=== PATIENT | female | born 1955 | race Caucasian/White ===

== ENCOUNTER → 2018-07-22 11:39 | Outpatient (CLI) | payer OTHER, SELFPAY | PROVIDERS: Visit Provider Physician Assistant | DX: R30.0 Dysuria (principal) | CPT/HCPCS: 87077; 87086; 87186 ==

== ENCOUNTER → 2019-01-10 14:17 | Outpatient (CLI) | payer OTHER, SELFPAY | PROVIDERS: PCP Hospitalist; Visit Provider Nurse Practitioner | DX: R30.0 Dysuria (principal) | CPT/HCPCS: 87077; 87086; 87186 ==

== ENCOUNTER → 2020-06-01 10:19 | Outpatient (CLI) | payer OTHER, SELFPAY | PROVIDERS: Visit Provider Nurse Practitioner | DX: R30.0 Dysuria (principal) | CPT/HCPCS: 87077; 87086; 87186 ==

== ENCOUNTER 2020-12-28 11:14 | Emergency (ER) | payer OTHER, SELFPAY ==
[2020-12-28 11:20] VITALS: BP 197/103; PULSE 96; RESP 14; TEMP 36.2; O2SAT 100; BMI 21.9
[2020-12-28 11:31] VITALS: BP 201/96; PULSE 82; RESP 18; O2SAT 98
[2020-12-28 12:00] VITALS: BP 175/79; PULSE 81; RESP 16; O2SAT 99
--- NOTE | 2020-12-28 12:24 | ED.GENADULT ---
HPI - General Adult <Blane Martins PA-C - Last Filed: 12/28/20 12:33> General Chief complaint: Hypertension Stated complaint: High bp, sent by [facility] Time Seen by Provider: 12/28/20 12:01 Source: patient Mode of arrival: Ambulatory Limitations: no limitations History of Present Illness HPI narrative: Dottie presents today with chief complaint of elevated blood pressure that has been going on for the last few days. She reports that she used to take lisinopril 5 mg daily but has not been taking that for a few years because she was controlling her blood pressure through diet and exercise. Occasionally she has episodes where her blood pressure elevates for a few days. She feels otherwise fine at this time. She denies any chest pain, shortness of breath, headache, dizziness, vision changes, exertional symptoms, diaphoresis, nausea, vomiting. She denies any significant dietary changes, large sodium meals, excessive alcohol intake, drug use or any other exacerbating factor that could have contributed to her symptoms. Related Data Previous Rx's Medication Instructions Recorded lisinopril 5 mg tablet 5 mg PO DAILY #30 tab 12/28/20 Allergies Allergy/AdvReac Type Severity Reaction Status Date / Time No Known Drug Allergies Allergy Verified 12/28/20 12:13 Review of Systems <Blane Martins PA-C - Last Filed: 12/28/20 12:33> Review of Systems Narrative: As per HPI Patient History <Blane Martins PA-C - Last Filed: 12/28/20 12:33> Medical History Chicken pox Frequent UTI (~2013) HTN (hypertension) (~2013) HTN, goal below 140/80 Skin problem (~2018) Vertigo (~2012) Vertigo (~2013) Family History Mother Cancer Father Congestive heart failure Hyperlipidemia Social History Smoking Status: Never smoker alcohol intake: current substance use type: does not use Smoking Status: Never smoker alcohol intake frequency: 0-2 drinks per day Substance Use Type: does not use Exam <Blane Martins PA-C - Last Filed: 12/28/20 12:33> Narrative Exam Narrative: Exam Narrative: Const General: cooperative, healthy appearing, comfortable, no acute distress, well developed and well groomed Nutritional Appearance: average body habitus Orientation: alert and oriented x3 HENMT Head: normal to inspection and atraumatic Ears: hearing grossly normal bilaterally Nose: external nose normal and nares normal Face and sinus: normal facial exam Eyes: PERRLA, EOMI, grossly normal in appearance Neck Neck: normal visual inspection and supple Resp Effort & Inspection: normal respiratory effort, able to speak in complete sentences, no audible wheezes, not labored, no nasal flaring and no respiratory distress, clear to auscultation bilaterally Cardiac Regular rate, regular rhythm, no discernible murmurs, rubs or gallops Neuro General: alert, oriented x3, gait normal, tone normal and moves all extremities, cranial nerves 2-12 grossly intact, normal coordination, normal [id number], normal rapid alternating movements of upper extremities, normal heel to bradley bilaterally. Cognition: normal cognition Speech: speech normal Gait: normal gait Psych Appearance: grossly normal and well kempt Mental Status: mental status grossly normal Speech and Movement: speech and movement normal Mood: congruent mood Affect: normal affect Initial Vital Signs Initial Vital Signs: Vital Signs Temperature 97.1 F L 12/28/20 11:20 Pulse Rate 96 H 12/28/20 11:20 Respiratory Rate 14 12/28/20 11:20 Blood Pressure 197/103 H 12/28/20 11:20 Pulse Oximetry 100 12/28/20 11:20 <Scarlet Szymanski DO - Last Filed: 01/02/21 00:29> Initial Vital Signs Initial Vital Signs: Vital Signs Temperature 97.1 F L 12/28/20 11:20 Pulse Rate 96 H 12/28/20 11:20 Respiratory Rate 14 12/28/20 11:20 Blood Pressure 197/103 H 12/28/20 11:20 Pulse Oximetry 100 12/28/20 11:20 Course <Blane Martins PA-C - Last Filed: 12/28/20 12:33> Vital Signs Vital signs: Vital Signs - 8 hr 12/28/20 11:20 12/28/20 11:31 Temperature 97.1 F L Pulse Rate 96 H 82 Respiratory Rate 14 18 Blood Pressure 197/103 H 201/96 H Pulse Oximetry 100 98 <DO Hardeep Rivera Last Filed: 01/02/21 00:29> Vital Signs Vital signs: Vital Signs - 8 hr 12/28/20 11:20 12/28/20 11:31 Temperature 97.1 F L Pulse Rate 96 H 82 Respiratory Rate 14 18 Blood Pressure 197/103 H 201/96 H Pulse Oximetry 100 98 Medical Decision Making <Blane Martins PA-C - Last Filed: 12/28/20 12:33> MDM Narrative Medical decision making narrative: Patient is well-appearing at this time. She does not have any signs or symptoms that would suggest end-organ damage. I will represcribe her lisinopril 5 mg daily and she agreed to call her PCP 1st thing on Wednesday to get a follow-up appointment. Recommend that she take her blood pressure daily and discontinue lisinopril if her blood pressure falls below 130 systolic or if she becomes dizzy, lightheaded. ER return precautions were discussed with the patient. Patient verbalizes understanding and agrees to plan and has no further concerns at this time. Thank you A [id number] system was used with the dictation of this note. Please disregard any spelling or grammatical errors. Discharge Plan Departure Patient Disposition: Home Clinical Impression: Hypertension Qualifiers: Hypertension type: unspecified Qualified Code(s): I10 - Essential (primary) hypertension Instructions: DI for High Blood Pressure Activity Restrictions/Additional Instructions: It was very nice to meet you this afternoon. Please continue to monitor your blood pressures daily and document them. I will prescribe lisinopril 5 mg to be taken daily. If your systolic blood pressure falls below 130 please do not take the lisinopril. Please call your doctor 1st thing on Wednesday to schedule a follow-up appointment. You experience headache, vision changes, chest pain, difficulty breathing or have any other acute concerns or complaints do not hesitate to return immediately for re-evaluation. Thank you Blane Martins PA-C Prescriptions: New lisinopril 5 mg tablet 5 mg PO DAILY Qty: 30 RF: 0 Referrals: Demetrice Rooney ARNP [Primary Care Provider] - <Scarlet Szymanski DO - Last Filed: 01/02/21 00:29> Cosign ED Attending Memeature Attestation: I was immediately available in the department for consultation. Documentation has been reviewed.
== END 2020-12-28 12:41 | disposition home or self-care (01) ==
PROVIDERS: Emergency Provider Physician Assistant; PCP Nurse Practitioner
DX: I10 Essential (primary) hypertension (principal)
CPT/HCPCS: 99284

== ENCOUNTER → 2021-01-14 08:26 | Outpatient (CLI) | payer OTHER, SELFPAY ==
[2021-01-14 09:34] LABS: Alanine Aminotransferase 10 IU/L (<35); Albumin 4.3 g/dL (3.5-5.0); Albumin Globulin Ratio 1.8 (1.0-2.8); Alkaline Phosphatase 54 U/L (38-126); Aspartate Aminotransferase 19 IU/L (14-36); BUN Creatinine Ratio 28.8 (6-22); Bilirubin Total 0.8 mg/dL (0.2-1.3); Blood Urea Nitrogen 23 mg/dL (7-17); Calcium 9.9 mg/dL (8.4-10.2); Carbon Dioxide 29 mmol/L (22-32); Chloride 103 mmol/L (98-107); Estimated Glomerular Filt Rate > 60.0 mL/min (>60); Globulin 2.4 g/dL (1.7-4.1); Glucose 94 mg/dL (80-110); HEMOLYSIS < 15 (0-50); Potassium 4.8 mmol/L (3.4-5.1); Sodium 138 mmol/L (137-145); Total Protein 6.7 g/dL (6.3-8.2)
[2021-01-14 09:48] LABS: Free T3, Triiodothyronine Free 3.49 pg/mL (2.77-5.27)
[2021-01-14 10:01] LABS: Thyroid Stimulating Hormone 2.09 uIU/mL (0.47-4.68)
[2021-01-14 17:58] LABS: Creatinine Urine Random 70.6 mg/dL
[2021-01-14 18:06] LABS: Microalbumin Urine Random < 0.6 mg/dL (0-1.6)
== END ==
PROVIDERS: PCP Nurse Practitioner; Referring Provider Nurse Practitioner; Visit Provider Nurse Practitioner
DX: I10 Essential (primary) hypertension (principal); Z79.899 Other long term (current) drug therapy
CPT/HCPCS: 36415; 80053; 82043; 82570; 84439; 84443; 84481

== ENCOUNTER → 2021-02-20 08:35 | Outpatient (CLI) | payer OTHER, SELFPAY | PROVIDERS: PCP Nurse Practitioner; Referring Provider Physician Assistant; Visit Provider Physician Assistant | DX: N39.0 Urinary tract infection, site not specified (principal) | CPT/HCPCS: 87077; 87086; 87186 ==

== ENCOUNTER → 2021-08-26 13:02 | Outpatient (ROUT) | payer OTHER, SELFPAY | PROVIDERS: PCP Nurse Practitioner; Visit Provider Physician Assistant | DX: R30.0 Dysuria (principal) | CPT/HCPCS: 87077; 87086; 87186 ==

== ENCOUNTER → 2021-12-24 15:26 | Outpatient (CLI) | payer OTHER, SELFPAY | PROVIDERS: PCP Nurse Practitioner; Visit Provider Nurse Practitioner Family | DX: R30.0 Dysuria (principal) | CPT/HCPCS: 87086 ==

== ENCOUNTER → 2022-01-12 09:36 | Outpatient (CLI) | payer OTHER, SELFPAY | PROVIDERS: PCP Nurse Practitioner; Visit Provider Nurse Practitioner Family | DX: R30.0 Dysuria (principal) | CPT/HCPCS: 87086 ==

== ENCOUNTER → 2022-10-31 11:57 | Outpatient (CLI) | payer MEDICARE, SELFPAY | PROVIDERS: PCP Nurse Practitioner; Visit Provider Physician Assistant | DX: R30.0 Dysuria (principal) | CPT/HCPCS: 87077; 87086; 87186 ==

== ENCOUNTER 2023-05-21 19:19 | Emergency (ER) | payer MEDICARE, SELFPAY ==
[2023-05-21] VITALS (9 sets, daily range): BP systolic 131–189; BP diastolic 71–88; PULSE 71–100; RESP 18; TEMP 37.1; O2SAT 97–99
--- NOTE | 2023-05-21 20:30 | PC.NURSE ---
hx of HTN was told by clinic to come to ED recent decrease in BP medication. pt only c/o slight h/a
--- NOTE | 2023-05-21 22:26 | ED.GENADULT ---
HPI - General Adult General Chief complaint: Hypertension Stated complaint: HBP Time Seen by Provider: 05/21/23 22:26 Source: patient Mode of arrival: Ambulatory History of Present Illness HPI narrative: 68-year-old female with history of hypertension presents with concern for elevated blood pressure. Patient states she had a mild headache and had been checking her blood pressure as recommended by her physician. She recently had her irbesartan increased about a week ago. She has been averaging about 140s systolic. She had a 185/112 or similar range. She would reached out to her primary care and told to take some Tylenol and magnesium and if that was not helpful and was still elevated rechecked to come be evaluated. Patient states headaches resolved, no vision changes, no chest pain, no shortness of breath no nausea no vomiting no other GI or urinary symptoms. No swelling in extremities. She states no other daily medications. Denies any major surgeries. Allergic to lisinopril. No tobacco, occasional alcohol in the weekends, no recreational drugs. Demetrice sebastian as her primary care. Related Data Previous Rx's Medication Instructions Recorded clobetasol 0.05 % topical cream 1 applic topical QAM AND QPM PRN 04/13/23 itching #30 grams irbesartan 150 mg tablet 225 mg (1.5 x 150 mg) PO DAILY 04/13/23 #135 tabs Allergies Allergy/AdvReac Type Severity Reaction Status Date / Time lisinopril AdvReac Mild lip Verified 04/13/23 12:37 swelling, night sweats Review of Systems Review of Systems ROS Unobtainable: All systems reviewed & are unremarkable except as noted in HPI and below Patient History Medical History Hyperlipidemia Skin problem (~2018) Chicken pox Frequent UTI (~2013) Vertigo (~2013) HTN (hypertension) (~2013) HTN, goal below 140/80 Vertigo (~2012) Family History Mother Cancer Father Congestive heart failure Hyperlipidemia Social History Smoking Status: Never smoker alcohol intake: current substance use type: does not use Smoking Status: Never smoker alcohol intake frequency: 0-2 drinks per day Substance Use Type: does not use Exam Narrative Exam Narrative: GENERAL: Alert and oriented x three, female in no acute distress. HEENT: Head normocephalic, atraumatic, EOMI, pupils reactive, face symmetric, moist mucous membranes NECK: Supple, full range of motion CARDIOVASCULAR: Regular rate and rhythm without murmurs, rubs or gallops. RESPIRATORY: Breath sounds equal bilaterally, no wheezes rales or rhonchi. ABDOMEN: Soft, nontender. Normoactive bowel sounds all 4 quadrants. No guarding or rebound, rigidity, no mass : No CVA tenderness EXTREMITIES: Normal range of motion, no clubbing or edema. Neurovascularly intact NEUROLOGICAL: Cranial nerves II through XII grossly intact. Moving all extremities SKIN: Warm, dry, no petechiae, no rashes or lesions. Initial Vital Signs Initial Vital Signs: Vital Signs Temperature 98.7 F 05/21/23 19:39 Pulse Rate 100 H 05/21/23 19:39 Respiratory Rate 18 05/21/23 19:39 Blood Pressure 189/88 H 05/21/23 19:39 Pulse Oximetry 98 05/21/23 19:39 Oxygen Delivery Method Room Air 05/21/23 19:39 Course Vital Signs Vital signs: Vital Signs - 8 hr 05/21/23 21:00 05/21/23 21:00 05/21/23 21:30 Pulse Rate 75 71 Respiratory Rate Blood Pressure 140/77 Pulse Oximetry 99 99 05/21/23 21:30 05/21/23 22:00 05/21/23 22:00 Pulse Rate 71 Respiratory Rate Blood Pressure 143/75 H 131/72 Pulse Oximetry 97 05/21/23 22:02 05/21/23 22:02 05/21/23 22:30 Pulse Rate 74 75 Respiratory Rate 18 Blood Pressure 148/79 H Pulse Oximetry 98 99 05/21/23 22:30 Pulse Rate Respiratory Rate Blood Pressure 148/71 H Pulse Oximetry Medical Decision Making MDM Narrative Medical decision making narrative: This is a 68-year-old female who presents for concern for elevated blood pressure is elevated initially, has come down without any intervention. Had a mild headache earlier which has since resolved she did take Tylenol and magnesium at home earlier they have been adjusting her blood pressure medication but she has been averaging about 140 systolic. Discussed with patient we will hold off on any further workup. She defers any additional interventions. Plan to continue to monitor blood pressure and adjust as needed. Reviewed return precautions. Discharge Plan Departure Patient Disposition: Home Clinical Impression: HTN (hypertension) Activity Restrictions/Additional Instructions: Please follow-up with your physician for recheck. Continue your home medications as prescribed. If your blood pressure is elevated but you are asymptomatic, contact your physician for further recommendations. If you develop severe headaches, sudden vision changes, chest pain or shortness of breath, persistent vomiting, new numbness tingling or weakness or other new or concerning changes please return for evaluation. Prescriptions: No Action clobetasol 0.05 % cream 1 applic topical QAM AND QPM PRN (Reason: itching) Qty: 30 3RF irbesartan 150 mg tablet 225 mg PO DAILY Qty: 135 3RF Rx Instructions: Take 1/2 tab each morning and 1 tab at bedtime for HTN Referrals: Demetrice Sebastian ARNP [Primary Care Provider] - Stand Alone Forms: Patient Portal/API
== END 2023-05-21 23:01 | disposition home or self-care (01) ==
PROVIDERS: Emergency Provider Emergency Medicine; PCP Nurse Practitioner
DX: I10 Essential (primary) hypertension (principal)
CPT/HCPCS: 99281

== ENCOUNTER → 2023-05-31 07:54 | Outpatient (CLI) | payer OTHER, SELFPAY ==
[2023-05-31 08:51] LABS: Alanine Aminotransferase 15 IU/L (<35); Albumin 4.3 g/dL (3.5-5.0); Albumin Globulin Ratio 1.5 (1.0-2.8); Alkaline Phosphatase 60 U/L (38-126); Aspartate Aminotransferase 21 IU/L (14-36); BUN Creatinine Ratio 17.9 (6-22); Bilirubin Total 1.1 mg/dL (0.2-1.3); Blood Urea Nitrogen 14 mg/dL (7-17); Calcium 9.9 mg/dL (8.4-10.2); Carbon Dioxide 30 mmol/L (22-32); Chloride 105 mmol/L (98-107); Cholesterol 251 mg/dL (140-199); Estimated Glomerular Filt Rate > 60 mL/min (>60); Globulin 2.8 g/dL (1.7-4.1); Glucose 105 mg/dL (80-110); HEMOLYSIS < 15 (0-50); Potassium 4.6 mmol/L (3.4-5.1); Sodium 138 mmol/L (137-145); Total Protein 7.1 g/dL (6.3-8.2); Triglycerides 94 mg/dL (35-150)
[2023-05-31 09:15] LABS: HDL Cholesterol 142 mg/dL (40-60); LDL Cholesterol Calculated 90 mg/dL (<100)
[2023-05-31 11:39] LABS: Creatinine Urine Random 125.3 mg/dL
[2023-05-31 11:43] LABS: Microalbumi Creatinin Ratio Ur 5.5 ug/mg CR (<30); Microalbumin Urine Random 0.7 mg/dL (0-1.6)
== END ==
PROVIDERS: PCP Nurse Practitioner; Referring Provider Nurse Practitioner; Visit Provider Nurse Practitioner
DX: E78.5 Hyperlipidemia, unspecified (principal); I10 Essential (primary) hypertension; Z79.899 Other long term (current) drug therapy
CPT/HCPCS: 36415; 80053; 80061; 82043; 82570

== ENCOUNTER → 2023-06-22 07:53 | Outpatient (CLI) | payer MEDICARE, SELFPAY ==
--- NOTE | 2023-06-22 07:54 | DI.ECHO.S_ITS ---
[facility] +---------+ : : [address] : : : : [id number] : : : : Phone: [phone]+ Echocardiogram Report + + :Name: NAPOLEON PORTER Study Date: 06/22/2023 Height: 62 in : :[facility] ReadingLocation: Weight: 118 lb : : Gender: Female BSA: 1.5 m2 : :: 1955 Age: 68 yrs BP: 168/96 mmHg: :Reason For Study: ESSENTIAL HYPERTENSION : :Ordering Physician: ABY, : :SYEDA Performed By: Christiano Berrios : :Referring: SYEDA BADILLO : + + Interpretation Summary 1) Normal left ventricular thickness, size, wall motion, and systolic function (EF 60-65%). 2) Normal right ventricular size and function. 3) No significant valvular abnormalities. 4) Compared to the Echo done 04/14/2016, no significant change. Procedure: A two-dimensional transthoracic echocardiogram with color flow and Doppler was performed. The study quality was technically adequate. Comparison is made with the echocardiogram of 04/14/2016. The patient was in normal sinus rhythm during the exam. The heart rate ranged between 76-87 bpm during the study. Left Ventricle: The left ventricle is normal in size and wall thickness. The ejection fraction is estimated to be 60-65%. Left ventricular systolic function appears normal without focal wall motion abnormalities. Diastolic parameters suggest probable normal left ventricular diastolic function and normal filling pressures. Right Ventricle: The right ventricle is normal in size and function. Atria: The left atrial size is normal. Right atrial size is normal. The interatrial septum grossly appears intact with no obvious evidence for an atrial septal defect. Mitral Valve: The mitral valve is normal in structure and function. There is no mitral valve stenosis. There is mild mitral regurgitation. Aortic Valve: The aortic valve is trileaflet. There is no aortic valve stenosis. No aortic regurgitation is present. Tricuspid Valve: The tricuspid valve is normal in structure and function. There is no tricuspid stenosis. There is a trace or physiologic amount of tricuspid regurgitation. The right ventricular systolic pressure is estimated to be at least 28 mmHg based on an estimated right atrial pressure of 3 mm Hg. Pulmonic Valve: The pulmonic valve is not well visualized. There is no pulmonic valvular stenosis. There is no pulmonic valvular regurgitation. Great Vessels: The aortic root is normal size. The dimensions of the ascending aorta are normal. The IVC is of normal diameter and collapses greater than 50% with a sniff. This suggests a low right atrial pressure of 3 mm Hg. Pericardium/ Pleura There is no pericardial effusion. There is no pleural effusion. MMode/2D Measurements & Calculations LVIDd: 4.1 cm LVOT diam: 1.9 cm LVIDs: 3.1 cm Ao root diam: 2.6 cm FS: 25.5 % asc Aorta Diam: 2.7 cm IVSd: 0.86 cm Ao Arch Diam (Prox Trans): 2.7 cm LVPWd: 0.71 cm LV estrada. diameter/BSA (cm/m^2): 2.7 LV sys. diameter/BSA (cm/m^2): 2.0 LA A2 area: 11.8 cm2 RA long axis: 3.7 cm LA A4 area: 14.0 cm2 RA area: 11.7 cm2 LA length (vol): 4.0 cm RA vol: 31.1 ml LA vol: 35.5 ml RA : 20.4 ml/m2 LA vol index: 23.2 ml/m2 IVC diam: 1.8 cm RVD1 (basal): 2.8 cm RVD2 (mid): 2.5 cm TAPSE: 2.2 cm Doppler Measurements & Calculations Ao V2 max: 153.8 cm/sec LVOT Max Trung: 123.6 cm/sec Ao V2 mean: 102.5 cm/sec LV V1 max P.1 mmHg Ao max P.5 mmHg LV V1 VTI: 29.9 cm Ao mean P.8 mmHg OBED(I,D): 2.5 cm2 Ao V2 VTI: 34.0 cm OBED(V,D): 2.2 cm2 sev ratio: 0.88 OBED indexed to BSA (cm^2/m^2): 1.6 MV E max trung: 82.2 cm/sec TR max trung: 253.0 cm/sec MV A max trung: 104.6 cm/sec TR max P.6 mmHg MV E/A: 0.79 PA V2 max: 108.5 cm/sec Med Peak E' Trung: 9.2 cm/sec PA V2 mean: 80.6 cm/sec E/E' med: 9.0 PA mean P.8 mmHg Lat Peak E' Trung: 10.2 cm/sec PA pr(Accel): 15.6 mmHg E/E' lat: 8.1 E/e' average: 8.5 MV dec time: 0.20 sec SV(LVOT): 83.4 ml Reading Physician:12:32 PM
== END ==
PROVIDERS: PCP Family Medicine; Referring Provider Nurse Practitioner; Visit Provider Nurse Practitioner
DX: I34.0 Nonrheumatic mitral (valve) insufficiency (principal); I10 Essential (primary) hypertension
CPT/HCPCS: 93306

== ENCOUNTER → 2023-09-15 16:37 | Outpatient (CLI) | payer MEDICARE, SELFPAY | PROVIDERS: PCP Family Medicine; Visit Provider Student in an Organized Health Care Education/Training Program | DX: R30.0 Dysuria (principal) | CPT/HCPCS: 87077; 87086; 87186 ==

== ENCOUNTER → 2024-01-18 09:25 | Outpatient (CLI) | payer MEDICARE, SELFPAY | PROVIDERS: PCP Family Medicine; Visit Provider Nurse Practitioner Family | DX: R30.0 Dysuria (principal); N30.01 Acute cystitis with hematuria | CPT/HCPCS: 87086 ==

== ENCOUNTER → 2024-02-22 12:30 | Outpatient (CLI) | payer MEDICARE, SELFPAY | PROVIDERS: PCP Family Medicine; Visit Provider Student in an Organized Health Care Education/Training Program | DX: R30.0 Dysuria (principal) | CPT/HCPCS: 87086 ==

== ENCOUNTER → 2024-03-23 09:45 | Outpatient (CLI) | payer MEDICARE, SELFPAY | PROVIDERS: PCP Family Medicine; Visit Provider Nurse Practitioner Family | DX: R30.0 Dysuria (principal) | CPT/HCPCS: 87086 ==

== ENCOUNTER → 2024-04-11 08:10 | Outpatient (CLI) | payer MEDICARE, SELFPAY ==
--- NOTE | 2024-04-11 08:11 | DI.US.S_ITS ---
PROCEDURE: US RENAL COMPLETE INDICATIONS: frequent UTI; urge incontinence TECHNIQUE: Real-time scanning was performed of the kidneys and bladder, with image documentation. COMPARISON: None. FINDINGS: Kidneys: Kidneys are normal in size. Right kidney measures 11.4 cm long; left kidney measures 10.9 cm long. Right renal cortical thickness is 1.0 cm; left renal cortical thickness is 1.1 cm. Renal cortical echotexture is normal. No hydronephrosis or nephrolithiasis. No suspicious solid mass lesions. Bladder: Pre-void bladder volume is 93 mL. Post-void residual is 7.5 mL. Pre-void images demonstrate no intraluminal masses or stones. On pre-void images, bilateral ureteral jets are noted with color Doppler interrogation. (Of note, ureteral jets may not be detectable in up to 25% of cases due to insufficient differences in specific gravity between ureteral and bladder urine). Miscellaneous: No free pelvic fluid. Incidental note made of cholelithiasis. IMPRESSION: Normal kidneys. Normal urinary bladder without debris. Small postvoid residual following emptying. Dictated by: Amy Arshad M.D. on 04/11/2024 at 15:18 Approved by: Amy Arshad M.D. on 04/11/2024 at 15:20
== END ==
PROVIDERS: PCP Family Medicine; Referring Provider Family Medicine; Visit Provider Family Medicine
DX: N39.0 Urinary tract infection, site not specified (principal); N39.41 Urge incontinence; R30.0 Dysuria; R33.9 Retention of urine, unspecified
CPT/HCPCS: 76770

== ENCOUNTER 2024-05-23 13:45 | Outpatient (RCR) | payer MEDICARE, SELFPAY ==
--- NOTE | 2024-05-11 16:00 | PT.OPPOC ---
Physical, Occupational & Speech Therapy At [facility] Current Diagnoses Segmental and somatic dysfunction of pelvic region (05/11/24) Urge incontinence (05/11/24) Other female genital prolapse (05/11/24) Frequency of micturition (05/11/24) Visit Care Team Role Provider Type Lindsey Tomas DO Attending Provider Physician Family Provider Primary Care Provider Referring Provider Specialty: Family Practice Address: [address] [place] [address], [address], [facility] Email: [email or web address] Plan Of Care PT-OP-B Current Condition Start: 05/10/24 13:29 Freq: Status: Active Protocol: Document 05/11/24 10:44 [facility] (Rec: 05/11/24 11:09 [facility] [id number]) Current Condition History of Current Condition Current Complaints urinary frequency History of Current Condition history of UTI's, she has done a ultrasound and there is a small post void of 7.5 ml. 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 She gets up at 6 and generally doesn't leave for work until 10 and she gets home between 3:30- and 4:00 pt wakes one time per night at 3:00 am She only gets urgency when she is closer to a UTI. PT-OP-T Assessment and Plan Start: 05/10/24 13:29 Freq: Status: Active Protocol: Document 05/11/24 10:45 [facility] (Rec: 05/16/24 08:26 [facility] [id number]) Physical Therapy Assessment Rehab Potential Rehabilitation Potential Excellent Evaluation Complexity Number of Personal Factors/Comorbidities 1-2 Number of Body Systems Impaired 3 Impairments Impairments Activity Tolerance,Functional Activities,Soft Tissue Mobility,Strength Other Impairments urge incontinence Goals 3 Impairment Pt lacks a home program for pelvic floor relaxation Care Home Goal (LTG) Dottie is independent with a HEP for pelvic floor relaxation techniques 2 Impairment fascial guarding of the suprapubic fascia and abdominal wall which can contribute to UTI's and bladder irritation Care Home Goal (LTG) Dottie presents with improved mobility of the abdominal fascia and is Ind with both self massage to the suprapubic fascia as well as stretches to help reduce tightness in the abdominal fascia LTG Duration 8 weeks 1 Impairment history of frequent UTI's and habit of delaying voiding during the day due to the nature of her work Short Term Goal (STG) Dottie is educated on the importance of voids every 2-3 hours and appropriate fluid intake to decrease irritation to the bladder STG Duration 4 weeks Assessment Summary Assessment Dottie is a 69 year old female who presents to PT with history of frequent UTI's and urinary urge incontinence. 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 If she waits too long she will have urgency and leakage. 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 With Eval Dottie presents with guarding and tightness of the suprapubic fascia and abdominal wall. She has difficulty with relaxing her floor with external palpation. She is a good candidate for bladder retraining, working on relaxed awareness of the pelvic floor and improving her ability to fully empty her bladder. She would benefit from a review of bladder irritants and education on how often she should be voiding and not holding. Due to history of frequent UTI's her ability to fully empty her bladder and to avoid holding for too long as well as strategies for increasing liquids during the day. Dottie is a good candidate for PT Physical Therapy Plan Frequency and Duration Frequency of Treatment 1x/Week Duration of treatment (weeks) 8 Plan of Care Start Date 05/11/24 Plan of Care End Date 07/06/24 Therapeutic Interventions Therapeutic Interventions Home Exercise Program,Manual Therapy,Patient/Caregiver Education,Self-Care/Home Management,Soft Tissue Mobilization,Therapeutic Exercises Modalities Biofeedback Next Visit Focus/Plan Next Note Type Treatment Note Next Visit Plan bladder diary, urge deference technique, begin MFR for the suprapubic fascia and teach stretches to relax the pelvic floor. Plan of Care Dates Plan of Care Start Date 05/11/24 Plan of Care End Date 07/06/24 Electronically Signed by: Yulissa Peña, PT 05/16/24 0827 If you are in agreement with this Plan of Care, please return a signed and dated copy. I have reviewed this Plan of Care and certify that the skilled therapy services above are required to meet the patient?s needs. Physician Signature Date Printed Name and Credentials Clinical Instructor Signature Printed Name and Credentials
--- NOTE | 2024-05-11 16:00 | PT.OIE ---
Current Diagnoses Segmental and somatic dysfunction of pelvic region (05/11/24) Urge incontinence (05/11/24) Other female genital prolapse (05/11/24) Frequency of micturition (05/11/24) Past Medical History (Last Reviewed 02/22/24 @ 13:02 by Elena Rosas PA-C) Chicken pox Frequent UTI (~2013) HTN (hypertension) (~2013) HTN, goal below 140/80 Hyperlipidemia Skin problem (~2018) Vertigo (~2012) Vertigo (~2013) Visit Care Team Role Provider Type Lindsey Tomas DO Attending Provider Physician Family Provider Primary Care Provider Referring Provider Specialty: Family Practice Address: [address] [place] [address], [address], [facility] Email: [email or web address] Physical Therapy Initial Evaluation PT-OP-A Visit Information Start: 05/10/24 13:29 Freq: Status: Active Protocol: Document 05/11/24 10:44 [facility] (Rec: 05/11/24 11:09 [facility] [id number]) Out-Patient Physical Therapy Visit Information Visit Information Visit Type Initial Evaluation Visit Note eval only [employer] Visit Start Time 10:45 Visit Stop Time 11:35 Visit Number 1 Evaluation Information Evaluation Date 05/11/24 PT-OP-B Current Condition Start: 05/10/24 13:29 Freq: Status: Active Protocol: Document 05/11/24 10:44 [facility] (Rec: 05/11/24 11:09 [facility] [id number]) Current Condition History of Current Condition Current Complaints urinary frequency History of Current Condition history of UTI's, she has done a ultrasound and there is a small post void of 7.5 ml. 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 She gets up at 6 and generallly doesn't leave for work until 10 and she gets home between 3:30- and 4:00 pt wakes one time per night at 3:00 am She only gets urgency when she is closer to a UTI. PT-OP-F Manual Assessment Start: 05/10/24 13:29 Freq: Status: Active Protocol: Document 05/11/24 10:45 [facility] (Rec: 05/16/24 08:26 [facility] [id number]) Manual Assessments Soft Tissue Assessment Soft Tissue Mobility Assessment tightness in the suprapubic fascia surrounding the bladder and urethra, fascial tightness in the upper abdominal wall PT-OP-I Pelvic Floor Start: 05/10/24 13:29 Freq: Status: Active Protocol: Document 05/11/24 10:45 [facility] (Rec: 05/16/24 08:26 [facility] [id number]) Pelvic Floor Assessment Urine Pelvic Floor Surgery No Urinary Symptoms Urge Sensation,Incomplete Emptying Other Urinary Symptoms stong urge to void, urgency with walking to the toilet Comments Pelvic Floor Comments tightness of the pelvic floor with decreased ability to fully relax PT-OP-T Assessment and Plan Start: 05/10/24 13:29 Freq: Status: Active Protocol: Document 05/11/24 10:45 [facility] (Rec: 05/16/24 08:26 [facility] [id number]) Physical Therapy Assessment Rehab Potential Rehabilitation Potential Excellent Evaluation Complexity Number of Personal Factors/Comorbidities 1-2 Number of Body Systems Impaired 3 Impairments Impairments Activity Tolerance,Functional Activities,Soft Tissue Mobility,Strength Other Impairments urge incontinence Goals 3 Impairment Pt lacks a home program for pelvic floor relaxation Fiber Optic Technician Goal (LTG) Dottie is independent with a HEP for pelvic floor relaxation techniques 2 Impairment fascial guarding of the suprapubic fascia and abdominal wall which can contribute to UTI's and bladder irritation Fiber Optic Technician Goal (LTG) Dottie presents with improved mobility of the abominal fascia and is Ind with both self massage to the suprapubic fascia as well as stretches to help reduce tightness in the abdominal fascia LTG Duration 8 weeks 1 Impairment history of frequent UTI's and habit of delaying voiding during the day due to the nature of her work Short Term Goal (STG) Dottie is educated on the importance of voids every 2-3 hours and appropriate fluid intake to decrease irritation to the bladder STG Duration 4 weeks Assessment Summary Assessment Dottie is a 69 year old female who presents to PT with history of frequent UTI's and urinary urge incontinence. 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 If she waits too long she will have urgency and leakge. 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 With Deedee Sinclair presents with guarding and tightness of the suprapubic fascia and abdominal wall. She has difficulty with relaxing her floor with external palpation. She is a good candidate for bladder retraining, working on relaxed awareness of the pelvic floor and improving her ability to fully empty her bladder. She would benefit from a review of bladder irritants and education on how often she should be voiding and not holding. Due to history of frequent UTI's her ability to fully empty her bladder and to avoid holding for too long as well as stratagies for increasing liquids during the day. Dottie is a good candidate for PT Physical Therapy Plan Frequency and Duration Frequency of Treatment 1x/Week Duration of treatment (weeks) 8 Plan of Care Start Date 05/11/24 Plan of Care End Date 07/06/24 Therapeutic Interventions Therapeutic Interventions Home Exercise Program,Manual Therapy,Patient/Caregiver Education,Self-Care/Home Management,Soft Tissue Mobilization,Therapeutic Exercises Modalities Biofeedback Next Visit Focus/Plan Next Note Type Treatment Note Next Visit Plan bladder diary, urge deference technique, begin MFR for the suprapubic fascia and teach stretches to relax the pelvic floor.
--- NOTE | 2024-05-18 14:33 | PT.OTN ---
Current Diagnoses Segmental and somatic dysfunction of pelvic region (05/18/24) Urge incontinence (05/18/24) Other female genital prolapse (05/18/24) Frequency of micturition (05/18/24) Physical Therapy Treatment Note PT-OP-A Visit Information Start: 05/10/24 13:29 Freq: Status: Active Protocol: Document 05/18/24 13:48 [facility] (Rec: 05/18/24 14:33 [facility] [id number]) Out-Patient Physical Therapy Visit Information Visit Information Visit Type Treatment Note Visit Start Time 13:45 Visit Stop Time 14:25 Visit Number 2 Evaluation Information Evaluation Date 05/11/24 PT-OP-B Current Condition Start: 05/10/24 13:29 Freq: Status: Active Protocol: Document 05/18/24 13:48 [facility] (Rec: 05/18/24 14:33 [facility] [id number]) Current Condition History of Current Condition Current Complaints urinary frequency History of Current Condition history of UTI's, she has done a ultrasound and there is a small post void of 7.5 ml. 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 She gets up at 6 and generallly doesn't leave for work until 10 and she gets home between 3:30- and 4:00 pt wakes one time per night at 3:00 am She only gets urgency when she is closer to a UTI. PT-OP-C Subjective Start: 05/10/24 13:29 Freq: Status: Active Protocol: Document 05/18/24 13:48 [facility] (Rec: 05/18/24 14:33 [facility] [id number]) OP-PT Subjective Patient Comments Patient Comments pt notes she has been able to get a little more out after voiding, she has been trying to drink water before coffee and then when she gets home. pt PT-OP-F Manual Assessment Start: 05/10/24 13:29 Freq: Status: Active Protocol: Document 05/11/24 10:45 [facility] (Rec: 05/16/24 08:26 [facility] [id number]) Manual Assessments Soft Tissue Assessment Soft Tissue Mobility Assessment tightness in the suprapubic fascia surrounding the bladder and urethra, fascial tightness in the upper abdominal wall PT-OP-I Pelvic Floor Start: 05/10/24 13:29 Freq: Status: Active Protocol: Document 05/11/24 10:45 [facility] (Rec: 05/16/24 08:26 [facility] [id number]) Pelvic Floor Assessment Urine Pelvic Floor Surgery No Urinary Symptoms Urge Sensation,Incomplete Emptying Other Urinary Symptoms stong urge to void, urgency with walking to the toilet Comments Pelvic Floor Comments tightness of the pelvic floor with decreased ability to fully relax PT-OP-Q Treatments Start: 05/10/24 13:29 Freq: Status: Active Protocol: Document 05/18/24 13:48 [facility] (Rec: 05/18/24 14:33 [facility] [id number]) Therapeutic Exercises Supine Exercises modified squat stretch Reps/Minutes hold 1-2 min diaphragmatic breathing Reps/Minutes hands on belly for cues x 10 reps Comments inhale x 4 counts exhale x 4 counts Manual Therapy Treatment Soft Tissue Mobilization MFR over the suprapubic fascia Comments MFR suprapubic fascia. pt was also educated in self fascial release for home. With with diaphragmatic breathing to decrease tension in the abdominal wall PT-OP-T Assessment and Plan Start: 05/10/24 13:29 Freq: Status: Active Protocol: Document 05/18/24 13:48 [facility] (Rec: 05/18/24 14:33 [facility] [id number]) Physical Therapy Assessment Assessment Summary Assessment Dottie did well with MFR techniques and diaphragmatic breathing. She tends to hold tightness in her abdomen and we discussed trying to relax her abdominal wall for voiding . Physical Therapy Plan Frequency and Duration Frequency of Treatment 1x/Week Duration of treatment (weeks) 8 Plan of Care Start Date 05/11/24 Plan of Care End Date 07/06/24 Next Visit Focus/Plan Next Note Type Treatment Note Next Visit Plan review stretches, urge technique diaphragmatic breathing and continue with fascial work. Add in lin pose with diaphragmatic breathing
--- NOTE | 2024-05-24 13:44 | PT.OTN ---
Current Diagnoses Segmental and somatic dysfunction of pelvic region (05/23/24) Urge incontinence (05/23/24) Other female genital prolapse (05/23/24) Frequency of micturition (05/23/24) Physical Therapy Treatment Note PT-OP-A Visit Information Start: 05/10/24 13:29 Freq: Status: Active Protocol: Document 05/23/24 13:45 [facility] (Rec: 05/24/24 13:42 [facility] [id number]) Out-Patient Physical Therapy Visit Information Visit Information Visit Type Treatment Note Visit Start Time 13:45 Visit Stop Time 14:30 Visit Number 3 Evaluation Information Evaluation Date 05/11/24 PT-OP-B Current Condition Start: 05/10/24 13:29 Freq: Status: Active Protocol: Document 05/18/24 13:48 [facility] (Rec: 05/18/24 14:33 [facility] [id number]) Current Condition History of Current Condition Current Complaints urinary frequency History of Current Condition history of UTI's, she has done a ultrasound and there is a small post void of 7.5 ml. 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 She gets up at 6 and generallly doesn't leave for work until 10 and she gets home between 3:30- and 4:00 pt wakes one time per night at 3:00 am She only gets urgency when she is closer to a UTI. PT-OP-C Subjective Start: 05/10/24 13:29 Freq: Status: Active Protocol: Document 05/23/24 13:47 [facility] (Rec: 05/23/24 14:33 [facility] [id number]) OP-PT Subjective Patient Comments Patient Comments pt notes she has been trying the double voiding and is feeling like it is making a difference no urethral irritation PT-OP-F Manual Assessment Start: 05/10/24 13:29 Freq: Status: Active Protocol: Document 05/11/24 10:45 [facility] (Rec: 05/16/24 08:26 [facility] [id number]) Manual Assessments Soft Tissue Assessment Soft Tissue Mobility Assessment tightness in the suprapubic fascia surrounding the bladder and urethra, fascial tightness in the upper abdominal wall PT-OP-I Pelvic Floor Start: 05/10/24 13:29 Freq: Status: Active Protocol: Document 05/11/24 10:45 [facility] (Rec: 05/16/24 08:26 [facility] [id number]) Pelvic Floor Assessment Urine Pelvic Floor Surgery No Urinary Symptoms Urge Sensation,Incomplete Emptying Other Urinary Symptoms stong urge to void, urgency with walking to the toilet Comments Pelvic Floor Comments tightness of the pelvic floor with decreased ability to fully relax PT-OP-Q Treatments Start: 05/10/24 13:29 Freq: Status: Active Protocol: Document 05/23/24 13:47 [facility] (Rec: 05/23/24 14:33 [facility] [id number]) Therapeutic Exercises Supine Exercises modified squat stretch Reps/Minutes hold 1-2 min diaphragmatic breathing Reps/Minutes hands on belly for cues x 10 reps Comments inhale x 4 counts exhale x 4 counts Other Exercises lin pose Reps/Minutes 1-2 min with diaphragmatic breathing cat cow Reps/Minutes 10 reps Manual Therapy Treatment Soft Tissue Mobilization MFR over the suprapubic fascia Mobilization Type Myofascial Release Body Position Supine Comments MFR suprapubic fascia. pt was also educated in self fascial release for home. With with diaphragmatic breathing to decrease tension in the abdominal wall PT-OP-T Assessment and Plan Start: 05/10/24 13:29 Freq: Status: Active Protocol: Document 05/23/24 13:45 [facility] (Rec: 05/24/24 13:42 [facility] [id number]) Physical Therapy Assessment Assessment Summary Assessment Dottie notes she is doing well with her exercises and I added new ones on today to help with pelvic floor relaxation. She has been working on increasing water intake and taking time to void and she feels that has been helping. She plans on continueing with her home program and will let us know if she needs any further visits Physical Therapy Plan Frequency and Duration Frequency of Treatment 1x/Week Duration of treatment (weeks) 8 Plan of Care Start Date 05/11/24 Plan of Care End Date 07/06/24 Next Visit Focus/Plan Next Note Type Treatment Note Next Visit Plan If Dottie feels she needs further visits review stretches, MFR over the abdominal wall, diaphragmatic breathing techniques
--- NOTE | 2024-07-04 09:34 | PT.OPDS ---
Current Diagnoses Segmental and somatic dysfunction of pelvic region (05/23/24) Urge incontinence (05/23/24) Other female genital prolapse (05/23/24) Frequency of micturition (05/23/24) Visit Care Team Role Provider Type Lindsey Tomas DO Attending Provider Physician Family Provider Primary Care Provider Referring Provider Specialty: Family Practice Address: [address] [place] [address], [address], [facility] Email: [email or web address] Visit Number Visit Number 3 Discharge Summary PT-OP-B Current Condition Start: 05/10/24 13:29 Freq: Status: Active Protocol: Document 05/18/24 13:48 [facility] (Rec: 05/18/24 14:33 [facility] [id number]) Current Condition History of Current Condition Current Complaints urinary frequency History of Current Condition history of UTI's, she has done a ultrasound and there is a small post void of 7.5 ml. 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 She gets up at 6 and generallly doesn't leave for work until 10 and she gets home between 3:30- and 4:00 pt wakes one time per night at 3:00 am She only gets urgency when she is closer to a UTI. PT-OP-C Subjective Start: 05/10/24 13:29 Freq: Status: Active Protocol: Document 05/23/24 13:47 [facility] (Rec: 05/23/24 14:33 [facility] [id number]) OP-PT Subjective Patient Comments Patient Comments pt notes she has been trying the double voiding and is feeling like it is making a difference no urethral irritation PT-OP-F Manual Assessment Start: 05/10/24 13:29 Freq: Status: Active Protocol: Document 05/11/24 10:45 [facility] (Rec: 05/16/24 08:26 [facility] [id number]) Manual Assessments Soft Tissue Assessment Soft Tissue Mobility Assessment tightness in the suprapubic fascia surrounding the bladder and urethra, fascial tightness in the upper abdominal wall PT-OP-I Pelvic Floor Start: 05/10/24 13:29 Freq: Status: Active Protocol: Document 05/11/24 10:45 [facility] (Rec: 05/16/24 08:26 [facility] [id number]) Pelvic Floor Assessment Urine Pelvic Floor Surgery No Urinary Symptoms Urge Sensation,Incomplete Emptying Other Urinary Symptoms stong urge to void, urgency with walking to the toilet Comments Pelvic Floor Comments tightness of the pelvic floor with decreased ability to fully relax PT-OP-T Assessment and Plan Start: 05/10/24 13:29 Freq: Status: Active Protocol: Document 07/04/24 09:31 [facility] (Rec: 07/04/24 09:33 [facility] [id number]) Physical Therapy Assessment Goals 3 Impairment Pt lacks a home program for pelvic floor relaxation Longterm Goal (LTG) Dottie is independent with a HEP for pelvic floor relaxation techniques goal met 2 Impairment fascial guarding of the suprapubic fascia and abdominal wall which can contribute to UTI's and bladder irritation Longterm Goal (LTG) Dottie presents with improved mobility of the abominal fascia and is Ind with both self massage to the suprapubic fascia as well as stretches to help reduce tightness in the abdominal fascia good progress LTG Duration 8 weeks 1 Impairment history of frequent UTI's and habit of delaying voiding during the day due to the nature of her work Short Term Goal (STG) Dottie is educated on the importance of voids every 2-3 hours and appropriate fluid intake to decrease irritation to the bladder goal met STG Duration 4 weeks Assessment Summary Assessment At the time of her last visit Dottie was doing well with her exercises and feeling that she was voiding better. She is independent with her home program at this time and will be discharged from PT Physical Therapy Plan Discharge Physical Therapy Discharge Comments pt notes she is doing better overall and is feeling independent with her HEP
== END 2024-07-05 12:59 | disposition home or self-care (01) ==
LOC: PHYS 13:45
PROVIDERS: Family Provider Family Medicine; PCP Family Medicine; Referring Provider Family Medicine; Visit Provider Family Medicine
DX: R35.0 Frequency of micturition (principal); N81.89 Other female genital prolapse; M99.05 Segmental and somatic dysfunction of pelvic region; N39.41 Urge incontinence
CPT/HCPCS: 97110; 97140; 97163; 97535

== ENCOUNTER → 2024-08-10 07:30 | Outpatient (CLI) | payer MEDICARE, SELFPAY | PROVIDERS: Family Provider Family Medicine; PCP Family Medicine; Visit Provider Family Medicine | DX: N39.0 Urinary tract infection, site not specified (principal) | CPT/HCPCS: 87086 ==

== ENCOUNTER → 2024-08-10 07:52 | Outpatient (CLI) | payer MEDICARE, SELFPAY ==
[2024-08-10 08:31] LABS: Add Manual Diff / Slide Review NO; Basophils Absolute Auto 100 /uL (0-100); Basophils Percent Auto 1.1 % (0-2); Eosinophils Absolute Auto 100 /uL (0-450); Eosinophils Percent Auto 1.5 % (2-4); Hemoglobin 13.5 g/dL (12.0-16.0); Lymphocytes Absolute Auto 800 /uL (1100-4500); Lymphocytes Percent Auto 16.7 % (25-40); Mean Corpuscular HGB Conc 33.7 % (30-36); Mean Corpuscular Hemoglobin 32.9 PG (26-34); Mean Corpuscular Volume 97.6 fL (80-100); Monocytes Absolute Auto 400 /uL (0-900); Monocytes Percent Auto 9.2 % (3-14); Neutrophils Absolute Auto 3300 /uL (1500-7000); Neutrophils Percent Auto 71.5 % (50-75); Platelet Count 320 X10^3/uL (150-400); White Blood Cell Count 4.6 X10^3/uL (4.5-11.0)
[2024-08-10 08:55] LABS: Alanine Aminotransferase 281 IU/L (<35); Albumin 4.8 g/dL (3.5-5.0); Albumin Globulin Ratio 1.8 (1.0-2.8); Alkaline Phosphatase 177 U/L (38-126); Aspartate Aminotransferase 81 IU/L (14-36); BUN Creatinine Ratio 18.6 (6-22); Bilirubin Total 1.6 mg/dL (0.2-1.3); Blood Urea Nitrogen 16 mg/dL (7-17); Calcium 10.3 mg/dL (8.4-10.2); Carbon Dioxide 27 mmol/L (22-32); Chloride 98 mmol/L (98-107); Estimated Glomerular Filt Rate > 60 mL/min (>60); Globulin 2.6 g/dL (1.7-4.1); Glucose 105 mg/dL (70-99); HEMOLYSIS < 15 (0-50); Lipase 66 U/L (23-300); Potassium 4.9 mmol/L (3.4-5.1); Sodium 134 mmol/L (137-145); Total Protein 7.4 g/dL (6.3-8.2)
== END ==
LOC: LAB 07:52
PROVIDERS: Family Provider Family Medicine; PCP Family Medicine; Referring Provider Family Medicine; Visit Provider Family Medicine
DX: N39.0 Urinary tract infection, site not specified (principal); K21.9 Gastro-esophageal reflux disease without esophagitis; K82.9 Disease of gallbladder, unspecified; R63.4 Abnormal weight loss
CPT/HCPCS: 36415; 80053; 83690; 85025; 87086

== ENCOUNTER → 2024-08-18 06:49 | Outpatient (CLI) | payer MEDICARE, SELFPAY ==
--- NOTE | 2024-08-18 06:50 | DI.US.S_ITS ---
PROCEDURE: US ABDOMEN LIMITED INDICATIONS: RIGHT UPPER QUADRANT ABDOMEN PAIN TECHNIQUE: Real-time scanning was performed of the abdominal and retroperitoneal organs, with image documentation. COMPARISON: [facility], US, US RENAL COMPLETE, 04/11/2024, 8:34. FINDINGS: Liver: Liver is normal in size and homogeneous in echotexture. Gallbladder: Gallbladder is completely filled with stones. No wall thickening. No pericholecystic edema. Negative sonographic Pettit's sign. Biliary ducts: Intrahepatic bile ducts are non-dilated. Extrahepatic bile duct caliber measures 4 mm. Normal is 6-7 mm or less in diameter, or 10 mm or less post-cholecystectomy. Pancreas: Visualized portions of the pancreas are sonographically normal. Miscellaneous: No free abdominal fluid. Spleen is within normal limits measuring 8.2 cm. Incidental note of moderate right renal pelviectasis and dilated proximal right ureter. IMPRESSION: 1. Gallbladder is completely filled with stones. No evidence of acute cholecystitis. 2. Incidental note of moderate right renal pelviectasis and dilated proximal right ureter, incompletely evaluated on this exam. Dictated by: Lion Orozco M.D. on 08/19/2024 at 13:12 Approved by: Lion Orozco M.D. on 08/19/2024 at 13:15
== END ==
PROVIDERS: Family Provider Family Medicine; PCP Family Medicine; Referring Provider Family Medicine; Visit Provider Family Medicine
DX: R10.11 Right upper quadrant pain (principal)
CPT/HCPCS: 76705

== ENCOUNTER 2024-09-15 12:54 | Day surgery (SDC) | payer MEDICARE, SELFPAY ==
[2024-09-07 13:03] VITALS: BMI 18.2
[2024-09-15] VITALS (9 sets, daily range): BP systolic 111–142; BP diastolic 55–79; PULSE 73–83; RESP 15–18; TEMP 36.3–36.6; O2SAT 99–100; BMI 17.2
--- NOTE | 2024-09-15 | DI.RAD.S_ITS ---
PROCEDURE: XR CHOLANGIOGRAM OPERATIVE INDICATIONS: HEIDI COMPARISON: [facility], , US ABDOMEN LIMITED, 08/18/2024, 8:21. FINDINGS: Biliary ducts: The surgeon injected contrast into the biliary ducts after cannulation of the cystic duct stump. Visualized intra- and extrahepatic bile ducts are normal in caliber, without strictures. No intraluminal filling defects to suggest retained ductal stones or sludge. No evidence for iatrogenic ductal injury. Duodenum: Contrast flows promptly through the sphincter of Oddi into the duodenum, which appears normal in caliber. IMPRESSION: Normal operative cholangiogram. Dictated by: Faraz Moscoso M.D. on 09/15/2024 at 17:01 Approved by: Faraz Moscoso M.D. on 09/15/2024 at 17:02
--- NOTE | 2024-09-15 | PATH_ITS ---
[facility] Accession Number: [id number] No. of containers..01 Tissue . 01 Material submitted: . gallbladder - GALLBLADDER . 01 Diagnosis: GALLBLADDER, CHOLECYSTECTOMY: Chronic cholecystitis with mild active inflammation and obstructing cholelithiasis. One benign lymph node. MRV 09/21/2024 1142 Local . 01 Electronically signed: . Savi Hughes DO, Pathologist NPI- [id number] . 01 Gross description: . Received in formalin with two identifiers and gallbladder, is an intact gallbladder 8.6 x 3.0 x 2.5 cm with a violaceous external surface. The cystic duct margin is inked blue. Three barry lymph node candidats are identified 0.5 cm in greatest dimension. Multiple yellow-orange fragmented faceted calculi are within the lumen up to 1.5 cm in greatest dimension and grossly obstructing the cystic duct. The bile is dark green and mucoid in texture. The mucosa is green and trabecular with no yellow discoloration, polyps, or lesions identified. The casanova range from 0.2 to 0.4 cm thick and sales representative jewelry sections to include the cystic duct margin, intact lymph node candidate, and full thickness sections are submitted in cassette A1. ([id number]) /NENA 09/17/2024 0348 Local . 01 Pathologist provided ICD-10: K80.10 . 01 CPT . 153706 Specimen Comment: A courtesy copy of this report has been sent to [facility] Pathology Performed at: [address] [facility], [place], [place] [id number] MD Dimitri Molina MD Phone: [phone]
[2024-09-15] MEDS: CELECOXIB 200 MG CAPSULE PO (13:50)
[2024-09-15] MEDS: GABAPENTIN 300 MG CAPSULE PO (13:50)
[2024-09-15] MEDS: ACETAMINOPHEN 325 MG TABLET 975 MG PO (13:50)
[2024-09-15] MEDS: LACTATED RINGERS 1,000 ML 42 ML IV (13:50)
--- NOTE | 2024-09-15 14:13 | PM.PREOP ---
Pre-operative Note Interval Note History & Physical reviewed/Exam performed by Physician: Yes Changes to H&P: No ASA Class (for procedural sedation): I
[2024-09-15] MEDS: CEFAZOLIN 2 GM/100 ML PREMIX 100 ML IV (14:42)
--- NOTE | 2024-09-15 15:05 | SUR.OPER ---
Supine on padded OR bed, head on pillow, arms secured on padded arm boards at <90 degrees abduction right arm tucked for C Arm access, legs uncrossed, safety belt at thigh, tape over blanket over lower legs.
[2024-09-15] MEDS: iopamidoL 30 ML VIAL INJ (15:23)
[2024-09-15] MEDS: BUPIVACAINE 0.25% W/ EPI 30 ML VIAL INJ (15:24)
--- NOTE | 2024-09-15 15:56 | P.OP_ITS ---
Operative Date/Time/Diagnoses Date of procedure: 09/15/24 Time of procedure: 15:56 Pre-op diagnosis: Calculous cholecystitis Post-op diagnosis: same Procedure & Clinicians Procedure: Lap choley with IOCG Same procedure(s) as scheduled: Yes Indications: Symptomatic cholelithiasis, chronic cholecystitis. H/O gallstones for 50 years. Surgeon: Dallas Wright Click Yes if Unassisted: Yes Anesthesia Type: General Operative Notes Findings: No omental adhesions, normal cholangiogram, routine choley Closure Type: primary Specimen(s): other (gallbladder) Applied: none Estimated Blood Loss (mL): 5 Blood products transfused: none Procedure in detail: After informed consent and satisfactory general endotracheal anesthesia the abdomen was prepped and draped in the usual sterile manner. Pneumoperitoneum with carbon dioxide to a pressure of 12 mmHg was established using the Montgomery direct cutdown trocar technique. An 0 Vicryl [id number]-fjvkx suture was placed in the fascia. Three right upper quadrant trocars were inserted under direct vision. The patient was placed in reverse Trendelenburg right side up position. Laparoscopic TAP blocks were performed by injecting 15 cc of 0.25% Marcaine with epinephrine into the transversus abdominis muscle bilaterally under direct vision. The fundus of the gallbladder was grasped and retracted over the liver the infundibulum was grasped and retracted laterally for proper exposure of the cystic duct and artery. There were no greater omental adhesions to the gallbladder. The cystic duct and artery were elongated and easily identified. The structures were skeletonized and critical view of safety was easily achieved. We had two distinct structures entering the gallbladder with segment 5 of the liver posteriorly. The cystic artery was addressed 1st by doubly clipping it with hemolock clips and dividing in between with Metzenbaum scissors. The cystic duct was controlled with a hemolock clip next to the gallbladder a ductotomy was made with laparoscopic Metzenbaum scissors and a cholangiogram was obtained using a yellow ureteral catheter via the Armenta clamp. The cholangiogram was normal. The left and right hepatic ducts common hepatic duct distal common bile duct were normal and nondilated with no filling defects and the contrast flowed unobstructed into the duodenum. With this the cholangiogram catheter was removed and 2 clips were placed proximal to the ducto magy and the cystic duct was divided completely with Metzenbaum scissors. With this the gallbladder was removed from the liver using hook cautery. The patient had a nice mesentery to the gallbladder and this was an easy plane. Once the gallbladder was it was placed into an endo-pouch and removed. Palpable cholelithiasis were appreciated. The liver bed was inspected and there was no bleeding or bile drainage noted. The cystic duct and artery clips were inspected and there was no bleeding or bile drainage noted. No irrigation fluid was required and nothing required suction. At this point the trocars were removed there was no bleeding noted at the trocar sites. The fascia was closed by tying the 0 Vicryl [id number]-lo-buprd suture taking care to avoid visceral contents. The skin incisions were closed using 4-0 Monocryl in a subcuticular manner. Dermabond glue was applied as a final dressing. The estimated blood loss was minimal. The instrument sponge and needle counts were all correct x2. The patient tolerated the procedure well and was extubated in the operating room after reversal of general endotracheal anesthesia and transported to the recovery area in stable condition. Complications: none Post-operative Condition: stable Disposition: PACU Plan for aftercare: F/U in office in two weeks
[2024-09-15] MEDS: ONDANSETRON 4 MG/2 ML INJ IV (16:13)
== END 2024-09-15 17:00 | disposition home or self-care (01) ==
PROVIDERS: Family Provider Family Medicine; PCP Family Medicine; Referring Provider Family Medicine; Visit Provider Surgery
PROC: 0FT44ZZ Resection of Gallbladder, Percutaneous Endoscopic Approach (ICD-10-PCS; CPT 47563; principal; 2024-09-15 14:30)
DX: K80.10 Calculus of gallbladder with chronic cholecystitis without obstruction (principal); Z87.440 Personal history of urinary (tract) infections
CPT/HCPCS: 47563; 74300; J0690; J1100; J2405; J2704; J3010; J3490; Q9967

== ENCOUNTER → 2024-09-20 13:22 | Outpatient (CLI) | payer MEDICARE, SELFPAY ==
--- NOTE | 2024-09-20 13:23 | DI.US.S_ITS ---
PROCEDURE: US ABDOMEN LIMITED INDICATIONS: RT inguinal mass TECHNIQUE: Real-time focused scanning was performed of the inguinal region, with image documentation. COMPARISON: [facility], [place], US ABDOMEN LIMITED, 08/18/2024, 8:21. FINDINGS: Focus of decreased echogenicity with posterior enhancement measuring 3.7 x 2.6 x 3.2 cm in the right inguinal region. No vascular flow. IMPRESSION: Cystic structure within the right inguinal region. CT is recommended for further evaluation Dictated by: Rachael Dodson M.D. on 09/20/2024 at 20:32 Approved by: Rachael Dodson M.D. on 09/20/2024 at 20:33
== END ==
PROVIDERS: Family Provider Family Medicine; PCP Family Medicine; Referring Provider Surgery; Visit Provider Surgery
DX: R19.09 Other intra-abdominal and pelvic swelling, mass and lump (principal)
CPT/HCPCS: 76705

== ENCOUNTER → 2024-09-27 08:20 | Outpatient (CLI) | payer MEDICARE, SELFPAY ==
--- NOTE | 2024-09-27 08:21 | DI.CT.S_ITS ---
PROCEDURE: CT PELVIS W CON INDICATIONS: RT inguinal mass, u/s showed cyst, ?femoral hernia TECHNIQUE: After the administration of intravenous contrast, 5 mm thick sections acquired from the iliac crests to the symphysis. 5 mm coronal and sagittal reformats were acquired. For radiation dose reduction, the following was used: automated exposure control, adjustment of mA and/or kV according to patient size. COMPARISON: [facility], , ABDOMEN LIMITED, 09/20/2024, 13:48. FINDINGS: Image quality: Diagnostic Lower abdomen: No bowel obstruction or lower abdomen. No drainable ascites. Bladder: Unremarkable Reproductive organs: Probable 1.4 cm right uterine fibroid. There are prominent Nilsa adnexal vessels bilaterally, greater on the left. Rectum: Unremarkable Vessels and lymph nodes: No enlarged lymph nodes by size criteria. No aneurysmal vessel identified Pelvic wall: 5.1 x 3.1 cm cystic lesion in the right groin. No definite hernia component identified on CT. Bones: There are degenerative osseous changes. IMPRESSION: Right groin fluid-filled structure measuring 5.1 x 3.1 cm corresponding to ultrasound finding. There is no definite connection into the intrapelvic cavity. No definite hernia component on CT, which is a static modality. No enhancing soft tissue mass. Probable uterine fibroid. Dictated by: Stefani Saavedra on 09/27/2024 at 14:24 Approved by: Eron Harley M.D. on 09/27/2024 at 14:29
[2024-09-27 08:47] LABS: Estimated Glomerular Filt Rate > 60 mL/min (>60)
== END ==
LOC: CT 08:21
PROVIDERS: Family Provider Family Medicine; PCP Family Medicine; Referring Provider Surgery; Visit Provider Surgery
DX: R19.09 Other intra-abdominal and pelvic swelling, mass and lump (principal)
CPT/HCPCS: 36415; 72193; 82565; Q9967